=== PATIENT | male | born 1990 ===

== ENCOUNTER 2017-07-07 10:44 | Outpatient (CLI) | payer OTHER | END 2017-07-07 10:45 | disposition home or self-care (01) | LOC: SC 10:44 | PROVIDERS: ATTEND Nurse Practitioner Family | DX: G47.30 Sleep apnea, unspecified (principal); G47.10 Hypersomnia, unspecified; R06.83 Snoring; G47.8 Other sleep disorders | CPT/HCPCS: 99203; 99212 ==

== ENCOUNTER 2017-07-11 00:08 | Outpatient (CLI) | payer OTHER | END 2017-07-11 00:09 | disposition EMS.NT | LOC: EMS 00:08 | PROVIDERS: ATTEND Surgery | DX: R45.851 Suicidal ideations (principal) ==

== ENCOUNTER 2017-10-01 18:26 | Outpatient (CLI) | payer OTHER | END 2017-10-01 18:27 | disposition home or self-care (01) | LOC: SC 18:26 | PROVIDERS: ATTEND Internal Medicine Pulmonary Disease | DX: G47.30 Sleep apnea, unspecified (principal); R06.83 Snoring | CPT/HCPCS: 95810 ==

== ENCOUNTER 2017-11-01 09:05 | Outpatient (CLI) | payer OTHER | END 2017-11-01 09:06 | disposition home or self-care (01) | LOC: SC 09:05 | PROVIDERS: ATTEND Nurse Practitioner Family | DX: G47.30 Sleep apnea, unspecified (principal); R06.83 Snoring | CPT/HCPCS: 99212; 99213 ==

== ENCOUNTER 2019-10-25 14:17 | Outpatient (CLI) | payer OTHER ==
--- NOTE | 2019-10-25 15:06 | XRAY Report ---
Reason: PAIN IN RIGHT WRIST Procedure Date: 10/25/2019 Accession Number: [id number] / [id number] Procedure: XR - Wrist 4 View RT CPT Code: Final Report FULL RESULT: EXAM: RIGHT WRIST RADIOGRAPHY EXAM DATE: 10/25/2019 02:46 PM. CLINICAL HISTORY: PAIN IN RIGHT WRIST. COMPARISON: None. TECHNIQUE: 4 views. FINDINGS: Bones: No fractures or bone lesions. Joints: Normal alignment. No subluxations. Soft Tissues: No soft tissue swelling. IMPRESSION: No fracture or malalignment. [facility]
== END 2019-10-25 14:18 | disposition home or self-care (01) ==
LOC: DI 14:17
PROVIDERS: ATTEND Internal Medicine
DX: M25.531 Pain in right wrist (principal)